=== PATIENT | male | born 1975 | race Caucasian/White ===

== ENCOUNTER 2023-07-14 18:02 | Emergency (ER) | payer BC, SELFPAY ==
[2023-07-14] VITALS (20 sets, daily range): BP systolic 102–149; BP diastolic 52–98; PULSE 60–81; RESP 13–27; TEMP 36.7; O2SAT 94–100
--- NOTE | ~2023-07-14 | XR_ITS ---
EXAMINATION: XR chest 2V Exam Date/Time: 07/14/2023 18:20 NURSE AIDE EVALUATOR HISTORY: LEFT SIDED CP, HX COPD Comparison: None. RESULT: Lines, tubes, and devices: None. Lungs and pleura: Mild diffuse reticulonodular opacities. Cardiomediastinal silhouette: Unremarkable. Other: No acute osseous or upper abdominal finding. IMPRESSION: Pulmonary opacities may represent bronchiolitis, as can be seen with atypical infection, asthma, aspi ration, and small airways disease. Reviewed, dictated and finalized at location K. E AIDE EVALUATOR IMPRESSION: Pulmonary opacities may represent bronchiolitis, as can be seen with atypical i nfection, asthma, aspiration, and small airways disease.
--- NOTE | 2023-07-14 18:04 | ECG_ITS ---
Measurements Intervals [place] Rate: 78 P: 62 SC: 149 QRS: 72 QRSD: 90 T: 43 QT: 338 QTc: 386 Interpretive Statements SINUS RHYTHM BASELINE WANDER- III NORMAL ECG NO PREVIOUS ECG AVAILABLE FOR COMPARISON Electronically Signed On 07-14-2023 20:09:30 [employer] by Stalin Coleman D.O.
[2023-07-14 18:27] LABS: Basophils Absolute Auto 0.1 K/mm3 (0.0-0.1); Basophils Percent Auto 0.5 % (0.2-1.2); Eosinophils Absolute Auto 0.3 K/mm3 (0-0.3); Eosinophils Percent Auto 2.6 % (0-4.4); Hematocrit 45.1 % (42.0-52.0); Hemoglobin 15.1 g/dL (14.0-18.0); Immature Granulocyte Absolute 0.02 K/mm3 (0.00-0.031); Immature Granulocyte Percent A 0.2 % (0-0.5); Lymphocytes Absolute Auto 2.66 K/mm3 (0.9-3.2); Lymphocytes Percent Auto 26.7 % (18.3-44.2); Mean Corpuscular HGB Conc 33.5 g/dl (32-36); Mean Corpuscular Hemoglobin 31.4 pg (26-34); Mean Corpuscular Volume 93.8 fl (80-100); Mean Platelet Volume 9.7 fl (7.4-10.4); Monocytes Absolute Auto 0.8 K/mm3 (0.1-0.6); Monocytes Percent Auto 7.8 % (2.6-8.5); Neutrophils Absolute Auto 6.2 K/mm3 (1.3-6.7); Neutrophils Percent Auto 62.2 % (45.5-73.1); Platelet Count Result 254 k/mm3 (150-375); Red Blood Count 4.81 M/mm3 (4.6-6.20); Red Cell Distribution Width 14.3 % (11.5-14.5)
[2023-07-14 18:38] LABS: Alanine Aminotransferase 19 U/L (6-50); Albumin Level 4.4 g/dL (3.5-5.1); Alkaline Phosphatase 50 U/L (38-126); Anion Gap 7 mmol/L (8-16); Aspartate Amino Transferase 35 U/L (17-59); Bilirubin,Total 0.6 mg/dL (0.2-1.3); Blood Urea Nitrogen 18 mg/dL (9-20); Calcium 9.3 mg/dL (8.4-10.2); Carbon Dioxide 28 mmol/L (22-30); Chloride 103 mmol/L (98-107); Estimated CRCL calculation 97 ml/min; Estimated Glomerular Filt Rate > 60; Glucose 100 mg/dL (65-110); Lipase 106 U/L (23-300); Potassium 4.1 mmol/L (3.4-5.0); Sodium 138 mmol/L (137-145)
[2023-07-14 18:45] LABS: INR 0.9; Prothrombin Time 12.6 Seconds (11.1-14.7)
[2023-07-14 18:46] LABS: Partial Thromboplastin Time 33.1 SECONDS (22.3-36.8)
[2023-07-14 18:49] LABS: Troponin I < 0.012 ng/mL (0.000-0.034)
[2023-07-14] MEDS: ASPIRIN 81 MG CHEWABLE TABLET 324 MG PO (19:49)
--- NOTE | 2023-07-14 20:38 | ED.CHESTPAIN ---
HPI - Chest Pain General Chief Complaint: Chest Pain Stated Complaint: Chest pain Time Seen by Provider: 07/14/23 20:05 Source: patient and other (partner) Limitations: no limitations History of Present Illness HPI narrative: This is a 47 yo male who presents with left sided chest pain since 0800. 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 He has a history of COPD but is not on any medications for this (including not using inhalers). He also notes that he uses medical marijuana. At one time he was using marijuana wax and experiencing similar chest pain. He switched to lyn formulation and didn't experience chest pain during that time but did start using marijauna wax again and is wondering if that might be the cause. The chest pain is intermittent. He does not have a fashion editor or PCP. No unilateral leg swelling. No recent trauma or surgery. No prior DVT/PE. Not on hormone therapy. He has a chronic cough every morning for approximately 30 minutes that is productive of white sputum. This is his normal cough in the setting of COPD. He did cough up some scant bloody streaks today. 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 HEAD: Normocephalic, atraumatic. EYES: Grossly normal. No scleral injection or icterus. ENT: Nares clear, no rhinorrhea or epistaxis. NECK: Supple. No meningismus. CHEST: Wheezing bilaterally but left greater than right. No respiratory distress, speakig in full sentences. HEART: Regular rate and rhythm. No murmur heard. Normal peripheral pulses. ABDOMEN: Soft , nondistended EXTREMITIES: Normal range of motion. No edema in bilateral lower extremities. SKIN: Warm, dry, no rash. NEURO: No focal deficits. Alert and oriented x3. PSYCH: Normal mood and affect. Course Vital Signs Vital signs: Vital Signs Temperature 98.0 F 07/14/23 18:10 Pulse Rate 75 07/14/23 18:10 Respiratory Rate 19 07/14/23 18:10 Blood Pressure 134/72 07/14/23 18:10 Pulse Oximetry 98 07/14/23 18:10 Oxygen Delivery Room Air 07/14/23 18:10 Temperature 98.0 F 07/14/23 18:10 Pulse Rate 73 07/14/23 22:00 Respiratory Rate 20 07/14/23 22:00 Blood Pressure 145/90 H 07/14/23 22:00 Pulse Oximetry 95 07/14/23 22:00 Oxygen Delivery Room Air 07/14/23 18:10 MDM - Chest Pain MDM Narrative Medical decision making narrative: Patient presents with chest pain since 0800 while sanding dry wall. In the ED he is afebrile with vital signs within normal limits. We will pursue chest pain work up though i suspect respiratory over cardiac etiology given age and risk factors. Can not apply PERC given he describes scant hemoptysis today so will obtain D-dimer since otherwise low pre-test probability for PE. After obtaining the patient's history and performing a physical exam, the patient was found to be hemodynamically stable, non-toxic appearing and with a presentation consistent with acute COPD exacerbation given presence of cough, wheezing in a patient with known COPD history. The patient appears to be suffering from a mild exacerbation of COPD. Based on the history, exam, and any testing done, I don't suspect any other emergency cause of respiratory distress such as, but not limited to, pneumonia, acute coronary syndrome, congestive heart failure, pulmonary embolism (Dimer WNL), or pneumothorax. Plan: Bronchodilator therapy initiated. Prednisone administered PO. Patient
[2023-07-14] MEDS: ALBUTEROL SULFATE NEB 2.5 MG/3 ML INH INHALATION (20:57)
[2023-07-14 21:33] LABS: D Dimer 0.27 ug/mL (<0.48)
[2023-07-14 21:38] LABS: Troponin I < 0.012 ng/mL (0.000-0.034)
[2023-07-14] MEDS: predniSONE 20 MG TABLET 40 MG PO (22:11)
== END 2023-07-14 22:16 | disposition home or self-care (01) ==
PROVIDERS: Emergency Medicine; Emergency Provider Student in an Organized Health Care Education/Training Program
DX: J44.9 Chronic obstructive pulmonary disease, unspecified (principal); R07.9 Chest pain, unspecified
CPT/HCPCS: 36415; 71046; 80053; 83690; 84484; 85025; 85380; 85610; 85730; 93005; 94640; 99284; A9270; J7512